=== PATIENT | male | born 1950 | race Caucasian/White ===

== ENCOUNTER → 2016-05-18 19:40 | Outpatient (CLI) | payer MEDICARE, OTHER ==
[~2016-05-18 19:40] MED LIST: BAYER CHEWABLE81 MG PO; CYMBALTA60 MG PO; DESERYL100 MG PO; EFFIENT10 MG PO; PRAVACHOL40 MG PO; PROTONIX40 MG PO; ZETIA10 MG PO
[2016-05-18 20:39] LABS: CHOL - HDL RATIO 3.4 ratio (2.3-4.9); LDL-HDL RATIO 2.1 ratio (1.5-3.5)
== END | disposition home or self-care (01) ==
LOC: D.LABREF 19:40
PROVIDERS: Internal Medicine Cardiovascular Disease
DX: I25.10 Atherosclerotic heart disease of native coronary artery without angina pectoris (principal)

== ENCOUNTER → 2016-10-05 17:10 | Outpatient (CLI) | payer MEDICARE, OTHER ==
[2016-10-05 17:49] LABS: CHOL - HDL RATIO 3.5 ratio (2.3-4.9); LDL-HDL RATIO 2.2 ratio (1.5-3.5)
== END | disposition home or self-care (01) ==
LOC: D.LABREF 17:10
PROVIDERS: Internal Medicine Cardiovascular Disease
DX: E78.5 Hyperlipidemia, unspecified (principal)

== ENCOUNTER → 2017-04-25 16:35 | Outpatient (CLI) | payer MEDICARE, OTHER ==
[2017-04-25 17:47] LABS: CHOL - HDL RATIO 3.1 ratio (2.3-4.9); LDL-HDL RATIO 1.9 ratio (1.5-3.5)
== END | disposition home or self-care (01) ==
LOC: D.LABREF 16:35
PROVIDERS: Internal Medicine Cardiovascular Disease
DX: E78.5 Hyperlipidemia, unspecified (principal)

== ENCOUNTER → 2017-06-13 09:58 | Outpatient (CLI) | payer MEDICARE, OTHER | END | disposition home or self-care (01) | LOC: D.CT 09:58 | DX: R93.8 Abnormal findings on diagnostic imaging of other specified body structures (principal) ==

== ENCOUNTER → 2017-08-23 17:04 | Outpatient (CLI) | payer MEDICARE, OTHER ==
[2017-08-23 19:34] LABS: CHOL - HDL RATIO 3.6 ratio (2.3-4.9); LDL-HDL RATIO 2.2 ratio (1.5-3.5)
== END | disposition home or self-care (01) ==
LOC: D.LABREF 17:04
PROVIDERS: Internal Medicine Cardiovascular Disease
DX: E78.5 Hyperlipidemia, unspecified (principal)

== ENCOUNTER → 2017-09-26 14:30 | Outpatient (CLI) | payer MEDICARE, OTHER ==
[2017-09-26 15:23] LABS: CHOL - HDL RATIO 2.4 ratio (2.3-4.9)
== END | disposition home or self-care (01) ==
LOC: D.LABREF 14:30
PROVIDERS: Internal Medicine Cardiovascular Disease
DX: I25.10 Atherosclerotic heart disease of native coronary artery without angina pectoris (principal)

== ENCOUNTER → 2017-12-25 18:26 | Outpatient (CLI) | payer MEDICARE, OTHER ==
[2017-12-25 19:22] LABS: CHOL - HDL RATIO 2.3 ratio (2.3-4.9); LDL-HDL RATIO 0.9 ratio (1.5-3.5)
== END | disposition home or self-care (01) ==
LOC: D.LABREF 18:26
PROVIDERS: Internal Medicine Cardiovascular Disease
DX: I25.10 Atherosclerotic heart disease of native coronary artery without angina pectoris (principal)

== ENCOUNTER → 2018-06-13 16:57 | Outpatient (CLI) | payer MEDICARE, OTHER ==
[2018-06-13 19:28] LABS: CHOL - HDL RATIO 2.3 ratio (2.3-4.9)
== END | disposition home or self-care (01) ==
LOC: D.LABREF 16:57
PROVIDERS: ATTEND Internal Medicine Cardiovascular Disease
DX: E78.5 Hyperlipidemia, unspecified (principal)

== ENCOUNTER → 2018-12-25 09:24 | Outpatient (CLI) | payer MEDICARE, OTHER ==
[~2018-12-25 09:24] MED LIST changes: +CELEBREX200 MG PO; +CIALIS10 MG PO; +MYRBETRIQ50 MG PO; +REGLAN5 MG PO; +REPATHA SY140 MG/1 M SC
== END | disposition home or self-care (01) ==
LOC: D.HCCARDIO 09:24
PROVIDERS: ATTEND Internal Medicine Cardiovascular Disease
DX: I25.10 Atherosclerotic heart disease of native coronary artery without angina pectoris (principal)

== ENCOUNTER 2018-12-28 10:46 | Outpatient (CLI) | payer MEDICARE, OTHER ==
[~2018-12-28] VITALS: Ht 170.2 cm; Wt 74.5 kg
--- NOTE | ~2018-12-28 | HEMODYNAMI ---
PATIENT:NAZ CONDE MEDICAL RECORD: [id number] : 48 LOCATION:[facility] ADMISSION DATE: 12/28/18 Generatedon:12/28/201815:06 Patient name: NAZ CONDE Patient #: [id number] SSN: : 1950 Date of study: 12/28/2018 Page: Of Hemodynamic Procedure Report Patient Data Patient Demographics Procedure consent was obtained First Name: NAZ Gender: Male Last Name: ELTON : 1950 [facility] Initial: CIRO Age: 68 year(s) Patient #: [id number] Race: Additional ID: [id number] Contact details Address: [address] [place] [address] [place] State: [place] City: [place] Zip code: [address] Past Medical History Allergies Allergen Reaction Date Comments Reported Other allergy 12/28/2018 IODINE, PCN, SEAFOOD Admission Admission Data Admission Date: 12/28/2018 Admission Time: 10:46 Lab Results Lab Result Date: 12/28/2018 Lab Result Time: 0:00 Biochemistry Name Units Result Min Max BUN mg/dl 21 --(----)-* 7 18 Creatinine mg/dl 1 --(--*-)-- 0.6 1.3 eGFR ml/min 79.98036 *-(----)-- 90 120 NONAFRICAN CBC Name Units Result Min Max Hematocrit % 43.8 --(*---)-- 42 54 Hemoglobin g/dl 15.7 --(--*-)-- 13.5 17.5 Procedure Procedure Types Cath Procedure Diagnostic Procedure LHC LHC w/Coronaries Procedure Description Procedure Date Procedure Date: 12/28/2018 Procedure Start Time: 14:47 Procedure End Time: 15:04 Procedure Staff Name Function Saba Odom RT Monitor Christie Jackson RT Scrub Miranda Alvarado RN Nurse Adal Villa MD Performing Physician Procedure Data Cath Procedure Fluoroscopy Diagnostic fluoroscopy Total fluoroscopy Time: 1.5 time: 1.5 min min Diagnostic fluoroscopy Total fluoroscopy dose: 455 dose: 455 mGy mGy Contrast Material Contrast Material Type Amount (ml) Isovue 300 66 Entry Location Entry Primary Successful Side Size Upsize Upsize Entry Closure Succes sful Closure Location (Fr) 1 (Fr) 2 (Fr) Remarks Device Remarks Femoral Right 5 Fr Exoseal artery Estimated blood loss: 5 ml Diagnostic catheters Device Type Used For End Catheter Placement MULTIPACK JL 4.0 5Fr Procedure catheter MULTIPACK 3DRC 5Fr Procedure catheter MULTIPACK Pigtail 5 Fr Procedure catheter Procedure Complications No complications Procedure Medications Medication Administration Route Dosage 0.9% NaCl I.V. 100 ml/hr Oxygen etCO2 Nasal cannula 2 l/min Lidocaine 2% added to field 20 Heparin Flush Bag added to field 2 bags (1000units/500ml NS) Versed I.V. 2 mg Fentanyl I.V. 100 mcg Versed I.V. 2 mg Hemodynamics Rest HGB: 15.7 (g/dl) Heart Rate: 82 (bpm) Pressure Samples Time Site Value (mmHg) Purpose Heart Use Rate(bpm) 14:54 LV 127/-7,12 Snapshot 89 14:55 AO 114/64(89) Pullback 92 14:55 LV 132/9,12 Pullback 92 Gradients Valve Time Site 1 Site 2 Mean SEP/DFP Peak To Heart Use (mmHg) (sec/min) Peak Rate (mmHg) (bpm) Aortic 14:55 LV AO 11 28 18 92 132/9,12 114/64(89) Calculations Valve P-P Mean Valve Index Valve Source Name Gradient Area Flow (cm2) Aortic 18 11 18 11 Snapshots Pre Cath Intra NCS Post Cath Vital Signs Time Heart Resp SPO2 etCO2 NIBP (mmHg) Rhythm Pain Sedation Rate (ipm) (%) (mmHg) Status Level (bpm) 14:40:26 94 15 98 30.1 138/80(109) NSR 0 (11) 10(A) , No pain 14:44:40 84 12 97 20.3 121/77(101) NSR 0 (11) 10(A) , No pain 14:48:52 84 15 98 30.8 117/74(95) NSR 0 (11) 10(A) , No pain 14:53:02 90 12 97 27.1 123/76(96) NSR 0 (11) 10(A) , No pain 14:57:13 93 12 98 26 125/75(99) NSR 0 (11) 10(A) , No pain 15:02:13 89 12 97 29.3 Measuring NSR 0 (11) 10(A) , No pain 15:02:21 89 17 97 29.3 126/83(105) NSR 0 (11) 10(A) , No pain Medications Time Medication Route Dose Verified Delivered Reason Notes Eff ectiveness by by 14:39:29 0.9% NaCl I.V. 100 Celio Miranda used for ml/hr Lexie Alvarado body welder 14:39:35 Oxygen etCO2 2 Celio Miranda used for Nasal l/min Lexei Alvarado procedure cannula RN 14:39:40 Lidocaine 2% added 20ml Celio Celio for local to vial Lexie Owen MD anesthetic field 14:39:44 Heparin Flush added 2 Celio Celio used for Bag to bags Lexie Owen MD procedure (1000units/500ml field NS) 14:45:32 Versed I.V. 2 mg Adal Miranda for Allen Alvarado sedation RN 14:45:37 Fentanyl I.V. 100 Adal Miranda for mcg Allen Alvarado sedation RN 14:49:08 Versed I.V. 2 mg Adal Miranda for Allen Alvarado sedation repairer switchgear Log Time Note 14:25:04 Informed consent obtained and on chart 14:25:47 Procedure Status Elective Heart Cath (OP). 14:25:51 Plan of Care:Hemodynamics will remain stable., Cardiac rhythm will remain stable., Comfort level will be maintained., Respiratory function will remain adequate., Patient/ family verbilizes understanding of procedure., Procedure tolerated without complication., Recovers from procedure without complications.. 14:25:52 Time tracking: Regular hours (M-F 7:00 - 5:00) 14:25:54 Miranda Alvarado RN sent for patient. Start room use. 14:32:02 Patient received from Pre/Post Procedure Room to CCL 1 Alert and oriented. Tansferred to table in Supine position. 14:32:03 Warm blankets applied, and madison hugger turned on for patient comfort. 14:32:03 Correct patient and procedure confirmed by team. 14:32:04 ECG and BP/O2 sat monitors applied to patient. 14:39:19 Vital chart was started 14:39:29 0.9% NaCl 100 ml/hr I.V. was administered by Miranda Alvarado RN; used for procedure; Verbal order read back and verified. 14:39:35 Oxygen 2 l/min etCO2 Nasal cannula was administered by Miranda Alvarado RN; used for procedure; Verbal order read back and verified. 14:39:40 Lidocaine 2% 20ml vial added to field was administered by Celio Owen MD; for local anesthetic; Verbal order read back and verified. 14:39:44 Heparin Flush Bag (1000units/500ml NS) 2 bags added to field was administered by Celio Owen MD; used for procedure; Verbal order read back and verified. 14:40:59 Baseline sample Acquired. 14:41:01 Full Disclosure recording started 14:41:04 Rhythm: sinus rhythm 14:41:22 H&P Date Dictated: 12/18/2018 Within 30 days and on chart., H&P Addendum completed by physician on day of procedure. (MUST COMPLETE FOR ALL OUTPATIENTS). 14:41:22 Pre-procedure instructions explained to patient. 14:41:23 Pre-op teaching completed and patient verbalized understanding. 14:41:25 Family in patients room. 14:41:26 Patient NPO since Midnight. 14:41:39 Patient allergic to Other allergyIODINE, PCN, SEAFOOD 14:41:42 Is the patient allergic to Iodine/contrast media? Yes. 14:41:43 Was the patient premedicated? Yes 14:41:44 Is patient on blood thinner?No 14:41:45 Patient diabetic? No. 14:41:48 Previous problem with sedation/anesthesia? No ? 14:41:49 Snore? Yes 14:41:50 Sleep apnea? No 14:41:51 Deviated septum? No 14:41:52 Opens mouth fully? Yes 14:41:56 Sticks out tongue? Yes 14:41:58 Airway obstruction? No ? 14:42:00 Dentures? No ? 14:42:02 Pre procedure: right dorsailis pedis pulse 2+ Normal; easily identifiable; not easily obliterated 14:42:06 IV patent on arrival in left hand with 0.9% NaCl at [facility]. 14:42:36 Lab Result : BUN 21 mg/dl 14:42:36 Lab Result : Creatinine 1 mg/dl 14:42:36 Lab Result : eGFR NONAFRICAN 79.34534 ml/min 14:42:36 Lab Result : Hemoglobin 15.7 g/dl 14:42:36 Lab Result : Hematocrit 43.8 % 14:42:39 Lab results completed and on chart. 14:42:42 Right groin area was prepped with chlora-prep and draped in sterile fashion 14:42:43 Alarms reviewed by R. N. 14:42:43 Sharps counted by scrub and verified by R.N. 14:42:47 Use device set Femoral Dx 14:42:48 ACIST Syringe (93675) opened to sterile field. 14:42:51 Bag Decanter (2002S) opened to sterile field. 14:42:52 ACIST Hand Control (00285) opened to sterile field. 14:42:52 ACIST Manifold (88346) opened to sterile field. 14:42:54 Tegaderm 4 x 4 (1626W) opened to sterile field. 14:42:54 Medline Cath Pack ([id number]) opened to sterile field. 14:42:55 DIAGNOSTIC Multipack 5Fr catheter set (IE6896) opened to sterile field. 14:42:56 SHEATH 5FR [place] (OPE083) opened to sterile field. 14:42:57 EMERALD Guide Wire (294-574) opened to sterile field. 14:44:14 --------ALL STOP TIME OUT------ 14:44:14 Final Timeout: patient, procedure, and site verified with staff and physician. All members of the team are in agreement. 14:44:16 Right groin site verified by team. 14:44:18 Fire Safety Assessment: A--An alcohol-based skin anteseptic being used preoperatively., C--Open oxygen or nitrous oxide is being used., D--An ESU, laser, or fiber-optic light is being used. 14:44:23 Physical assessment completed. ASA score P 2 - A patient with mild systemic disease as per Adal Villa MD. 14:44:38 2) 60-89 Mildly reduced kidney function, and other findings (as for stage 1) point to kidney disease. 14:44:44 Maximum allowable contrast dose (3.7 X eGFR X 0.75)218 ml. 14:44:48 Sedation plan: IV Moderate Sedation Medication:Versed, Fentanyl 14:45:32 Versed 2 mg I.V. was administered by Miranda Alvarado RN; for sedation; Verbal order read back and verified. 14:45:37 Fentanyl 100 mcg I.V. was administered by Miranda Alvarado RN; for sedation; Verbal order read back and verified. 14:47:40 Procedure started. 14:47:43 Local anesthetic to right femoral artery with Lidocaine 2% by Saba DUNCAN(R).INITIAL ACCESS ONLY 14:48:18 Zero performed for pressure channel P1 14:48:35 Zero performed for pressure channel P1 14:48:39 Zero performed for pressure channel P1 14:48:44 Zero performed for pressure channel P1 14:48:50 Zero performed for pressure channel P1 14:48:53 Zero performed for pressure channel P1 14:49:06 A 5 Fr sheath was inserted into the Right Femoral artery 14:49:08 Versed 2 mg I.V. was administered by Miranda Alvarado RN; for sedation; Verbal order read back and verified. 14:49:15 A MULTIPACK JL 4.0 5Fr catheter was advanced over the wire and used for Procedure. 14:51:12 LCA angiography performed. 14:51:39 Catheter exchanged over wire. 14:51:41 Zero performed for pressure channel P1 14:51:47 Zero performed for pressure channel P1 14:52:00 A MULTIPACK 3DRC 5Fr catheter was advanced over the wire and used for Procedure. 14:53:11 RCA angiography performed. 14:53:12 Catheter exchanged over wire. 14:54:23 A MULTIPACK Pigtail 5 Fr catheter was advanced over the wire and used for Procedure. 14:54:25 LV gram done using CARDENAS 14:54:27 Injector settings: Ml/sec: 10, Volume: 20, 14:54:51 LV hemodynamics recorded. 14:55:08 EF : 50 % 14:57:06 Catheter removed. 14:57:08 EXOSEAL 5Fr (EX500) opened to sterile field. 14:58:11 Sheath removed intact; hemostasis achieved with Exoseal to the Right Femoral artery. 14:58:45 Procedure ended.(Physican Out) 15:00:13 Fluoroscopy time 01.50 minutes. 15:00:28 Flurop Dose total: 455 15:00:28 Fluoroscopy dose: 455 mGy 15:01:12 Dose Area Product 29673 mGy/cm. 15:01:18 Contrast amount:Isovue 300 66ml. 15:01:20 Maximum allowable dose exceeded? No. 15:01:21 Sharps counted by scrub and verified by R.N. 15:01:41 Post-op/insertion site Right Femoral artery dressed using a 4 x 4 and Tegaderm. 15:02:18 Post-procedure physical assessment completed. ASA score P 2 - A patient with mild systemic disease as per Adal Villa MD. 15:02:21 Post procedure rhythm: sinus rhythm 15::41 Estimated blood loss: 5 ml 15::43 Post procedure instruction explained to patient.Patient verbalizes understanding. 15::43 Patient needs reinforcement of post procedure teaching. 15:04:10 Procedure and supply charges have been captured, reviewed, submitted and are correct. 15:04:13 Procedure Complication : No complications 15:04:15 Vital chart was stopped 15:04:16 See physician's report for complete and final results. 15:04:19 Report given to Pre/Post Procedure Room. 15:04:22 Patient transfered to Pre/Post Procedure Room with Bed. 15:04:28 Procedure ended. 15:04:28 Full Disclosure recording stopped 15:04:31 End room use (Document Last) 15:05:54 End room use (Document Last) 15:06:22 End room use (Document Last) Device Usage Item Name Manufacture Quantity Catalog Hospital Part Current Minimal L ot# / Number Charge Number Stock Stock Serial# Code ACIST Acist 1 82771 172544 319762 932525 20 Syringe Medical (68207) Systems Inc Bag Microtek 1 482040 49574 336759 5 Decanter Medical Inc. () ACIST Hand Acist 1 73488 782571 520064 583813 5 Control Medical (93683) Systems Inc ACIST Acist 1 75253 237726 070924 536323 5 Manifold Medical (49329) Systems Inc Tegaderm 4 3M 1 1626W 335926 045846 553360 5 x 4 (1626W) Medline Medline 1 [id number] 944863 02677 460556 5 Cath Pack ([id number]) DIAGNOSTIC Cardinal 1 TO2785 069175 15908 945049 30 MultipdigiSchool 5Fr catheter set (YG6352) SHEATH 5FR Terumo 1 DAA005 377792 146853 840110 5 [place] (DYO884) EMERALD Cardinal 1 854-018 023115 316220 070260 5 Guide Wire Health (783-603) MULTIPACK Cardinal 1 269431 5 JL 4.0 5Fr Health catheter MULTIPACK Cardinal 1 565889 5 3DRC 5Fr In2Games catheter MULTIPACK Cardinal 1 338975 5 Pigtail 5 Health Fr catheter EXOSEAL 5Fr Cardinal 1 EX500 545812 744180 [id number] 10 (EX500) Health Signature Audit [employer] Stage Time Signature Unsigned Intra-Procedure 12/28/2018 Saba Odom 3:05:54 PM RT(R) Intra-Procedure 12/28/2018 Miranda Alvarado 3:06:22 PM RN Intra-Procedure 12/28/2018 Adal Villa MD 3:06:47 PM [facility] [address] [place] [address]
[~2018-12-28 10:46] MED LIST changes: -CELEBREX200 MG PO; -CIALIS10 MG PO; -MYRBETRIQ50 MG PO; -REGLAN5 MG PO; -REPATHA SY140 MG/1 M SC
[2018-12-28] MEDS ORDERED: MYRBETRIQ50 MG PO (10:57)
[2018-12-28] MEDS ORDERED: CELEBREX200 MG PO (10:58)
[2018-12-28] MEDS ORDERED: REGLAN5 MG PO (10:59)
[2018-12-28] MEDS ORDERED: CIALIS10 MG PO (10:59)
[2018-12-28] MEDS ORDERED: REPATHA SY140 MG/1 M SC (11:00)
[2018-12-28 11:25] VITALS: BP 124/72; Ht 170.2 cm; Wt 74.5 kg
[2018-12-28 12:02] LABS: BASOPHILS 0 % (0-2); EOSINOPHILS 0 % (0-7); HEMATOCRIT 43.8 % (42.0-54.0); HEMOGLOBIN 15.7 g/dL (13.5-17.5); IMMATURE GRANULOCYTES 0.5 % (0-5); LYMPHOCYTES 4.1 % (15-50); MCH 32.8 pg (26.0-34.0); MCHC 35.8 g/dL (31.0-37.0); MCV 91.6 fL (80.0-100.0); MEAN PLATELET VOLUME 10.9 fL (7.4-10.4); MONOCYTES 1.6 % (2-11); NEUTROPHILS 93.8 % (40-80); PLATELET COUNT 157 10x3/uL (130-400); RBC 4.78 10x6/uL (4.20-6.10); RDW 12.5 % (11.5-14.5); WBC 8.8 10x3/uL (4.8-10.8)
[2018-12-28 12:14] LABS: ALT (SGPT) 18 U/L (10-68); CALC OSMOLALITY 281 mosm/kg (275-300); CALCIUM 8.7 mg/dL (8.5-10.1); CARBON DIOXIDE 27.6 mmol/L (21.0-32.0); CHLORIDE - SERUM 104 mmol/L (98-107); CHOLESTEROL, TOTAL 146 mg/dL (0-200); GLUCOSE 124 mg/dL (74-106); HDL CHOLESTEROL 72 mg/dL (32-96); LDL CHOLESTEROL 66 mg/dL (0-100); LDL-HDL RATIO 0.9 ratio (1.5-3.5); POTASSIUM - SERUM 4.1 mmol/L (3.5-5.1); SODIUM 139 mmol/L (136-145); TRIGLYCERIDE 42 mg/dL (30-200); UREA NITROGEN 21 mg/dL (7-18); eGFR NON AFRICAN AMERICAN 79 mL/min (90-120)
--- NOTE | 2018-12-28 15:10 | NUR ---
PATIENT ARRIVED TO ROOM 2, PLACED ON CM. VSS ON ROOM AIR. RIGHT GROIN DRESSING IN PLACE, NO S/S OF BLEEDING OR HEMATOMA.
--- NOTE | 2018-12-28 15:25 | NUR ---
PATIENT AWAKE, PHYSICIAN AT BEDSIDE TO UPDATE PATIENT AND FAMILY, ALL QUESTIONS ANSWERED. VSS ON ROOM AIR. RIGHT GROIN DRESSING IS CDI, NO S/S OF BLEEDING OR HEMTOMA. NO C/O PAIN, NUMBNESS, OR TINGLING. TOLERATING PO FLUIDS, NO N/V.
--- NOTE | 2018-12-28 15:55 | NUR ---
HEAD OF BED ELEVATED 30 DEGREES. RIGHT GROIN DRESSING IS CDI, NO S/S OF BLEEDING OR HEMATOMA. NO C/O PAIN, NUMBNESS, OR TINGILNG. VSS ON ROOM AIR.
--- NOTE | 2018-12-28 16:25 | NUR ---
HEAD OF BED AT 60 DEGREES. RIGHT GROIN DRESSING IS CDI, NO S/S OF BLEEDING OR HEMATOMA. NO C/O PAIN, NUMBNESS, OR TINGLING. VSS ON ROOM AIR. NO N/V. EDUCATION REGARDING DISCHARGE INSTRUCTIONS GIVEN IN WRITTEN AND VERBAL FORM TO PATIENT, PATIENT VOICES UNDERSTANDING.
--- NOTE | 2018-12-28 16:40 | NUR ---
PATIENT VOIDED WITHOUT DIFFICULTY. IV REMOVED.
--- NOTE | 2018-12-28 16:55 | NUR ---
PATIENT REFUSED WHEELCHAIR, ACCOMPANIED TO CAR WITH FRIEND DRIVING, ALL BELONGINGS WITH PATIENT.
== END 2018-12-28 16:55 ==
LOC: D.CATH 10:46
PROVIDERS: ATTEND Internal Medicine Cardiovascular Disease
DX: R94.30 Abnormal result of cardiovascular function study, unspecified (principal); I25.110 Atherosclerotic heart disease of native coronary artery with unstable angina pectoris

== ENCOUNTER → 2020-06-02 18:16 | Outpatient (CLI) | payer MEDICARE, OTHER ==
[2018-12-28 11:25] VITALS: BMI 25.7
[~2020-06-02 18:16] MED LIST changes: +CELEBREX200 MG PO; +CIALIS10 MG PO; +MYRBETRIQ50 MG PO; +REGLAN5 MG PO; +REPATHA SY140 MG/1 M SC
[2020-06-02 22:21] LABS: CHOL - HDL RATIO 2.3 ratio (2.3-4.9); LDL-HDL RATIO 1.1 ratio (1.5-3.5)
== END | disposition home or self-care (01) ==
LOC: D.LABREF 18:16
PROVIDERS: ATTEND Internal Medicine Cardiovascular Disease
DX: E78.5 Hyperlipidemia, unspecified (principal)